=== PATIENT | female | born 1990 | race Caucasian/White ===

== ENCOUNTER 2022-04-18 12:07 | Emergency (ER) | payer BC, SELFPAY ==
[2022-04-18 12:11] VITALS: BP 166/75; PULSE 76; RESP 18; O2SAT 98
--- NOTE | 2022-04-18 12:15 | DI.US_ITS ---
Exam(s) US OB 1ST TRIMESTER EXAM: US OB 1ST TRIMESTER CLINICAL HISTORY: abdominal pain, 7 weeks , no prior iup. COMPARISON: No exams were available for comparison TECHNIQUE: Transabdominal Transvaginal first trimester obstetrical ultrasound performed. FINDINGS: Sonographic images demonstrate a single intrauterine gestation. A yolk sac and pole are seen. Sonographically assessed gestational age based upon crown-rump length of 1.1 cm cm is: 7 weeks 1 day Estimated date of delivery based upon LMP: 05 December 2022. heart rate motion is Dopplered at: 143 bpm. No free fluid identified. Both ovaries appear sonographically normal. Pelvic Measurments Uterus: 8.4 x 4.6 x 6.3 cm Rt Ovary: 3.5 x 1.8 x 2.8 cm Lt Ovary: 3.7 x 2.7 x 3.2 cm IMPRESSION: Single live intrauterine gestation measuring 7 weeks 1 day. No evidence of ectopic . DATA REPOSITORY:
[2022-04-18 14:07] LABS: Abs Immature Grans 0.03 10^3/uL (0.0-0.06); Absolute Basophil Count 0.09 10^3/uL (0.0-0.2); Absolute Eosinophil Count 0.25 10^3/uL (0.0-0.7); Absolute Lymphocyte Count 1.76 10^3/uL (1.2-3.4); Absolute Monocyte Count 0.96 10^3/uL (0.1-0.8); Absolute Neutrophil Count 6.19 10^3/uL (1.2-6.7); Eosinophils % 2.7; HCT 40.5 % (36.0-46.0); HGB 13.9 g/dL (11.2-15.7); Immature Grans % 0.3; MCH 30.7 pg (27.0-33.0); MCHC 34.3 % (32.0-36.0); MCV 89 fL (80-95); MPV 9.3 fL (8.0-11.0); Monocytes % 10.3; Neutrophils % 66.7; Platelet Count 342 10^3/uL (130-400); RBC 4.53 10^6/uL (3.93-5.22); RDW-SD 39.3 fL; WBC 9.28 10^3/uL (4.4-10.8)
[2022-04-18 14:31] LABS: HCG Qual (Serum) Positive
[2022-04-18 14:39] LABS: ALT 21 U/L (14-59); AST 12 U/L (15-37); Albumin 3.8 g/dL (3.4-5.0); Alkaline Phosphatase 64 U/L (46-116); Anion Gap 9.1 mmol/L (3-11); BUN 10 mg/dL (7-18); Bilirubin, Total 0.2 mg/dL (0.2-1.0); CO2 23.9 mmol/L (21.0-32.0); CREATININE 0.5 mg/dL (0.55-1.02); Calcium 8.6 mg/dL (8.5-10.1); Chloride 103 mmol/L (98-107); Glucose 95 mg/dL (74-106); Potassium 3.8 mmol/L (3.5-5.1); Sodium 136 mmol/L (136-145); Total Protein 7.8 g/dL (6.4-8.2)
[2022-04-18 14:45] LABS: Bilirubin Negative (Negative); Blood Negative (Negative); Clarity Clear (Clear); Glucose Negative (Negative); Ketones Negative (Negative); Leukocyte Esterase Negative (Negative); Nitrite Negative (Negative); Urobilinogen 0.2 EU/dL (Up TO 0.2)
[2022-04-18 15:07] VITALS: BP 122/67
--- NOTE | 2022-04-18 16:04 | ED.GENADUL_ITS ---
Discharge Plan Disposition Patient Disposition: HOME Condition: Stable Discharge Details Clinical Impression: Primary Care Provider: None,None ED Provider: Consuelo De La Vega Home Meds and New Rx's Prescriptions: Continued [id number] 1 mg Tablet 1 tab PO DAILY albuterol 90 mcg/actuation Aerosol 90 mcg INHALATION PRN PRN Discharge Instructions Instructions: (ED) Additional Instructions: Take Tylenol as needed for pain Follow-up to establish primary care physician and follow-up with your [employer] at your scheduled appointment Please return Should you have persistent or worsening pain, fever, vaginal bleeding, or with any new or worsening complaints Your labs and urinalysis are all within normal limits Stand Alone Forms: Work Release Discharge Data Discharge Date/Time-TO BE ENTERED AT DEPARTURE: 04/18/22 15:25 Medical Decision Making Ultrasound does not show evidence of acute abnormality Labs within normal limits Positive IUP Referred back to her provider for close outpatient reassessment Urinalysis does not show evidence of infection Return precautions discussed and patient expressed understanding Low suspicion for appendicitis clinically given lack of right lower quadrant/McBurney's point tenderness, no leukocytosis, afebrile Medical Records Medical records reviewed: Yes I reviewed the patient's medical records. Lab Data Lab results reviewed: Yes I reviewed the patient's lab results. HPI General Date/Time Provider Initiated Documentation: 04/18/22 12:18 . HPI Narrative: This 31-year-old female presents approximately 7 weeks from [facility] with right lower quadrant discomfort that started last evening. Denies any vaginal bleeding. Denies any chest pain or shortness of breath. Denies any dizziness or weakness. 1 para 0. Denies fever or chills. Sexually active and monogamous with her partner. Denies any flank pain or urinary symptoms. Denies risk for sexually transmitted disease. Denies any hematuria or dysuria. States the pain is actually improved today. Related Data Home Medications Medication Instructions Recorded Confirmed albuterol 90 mcg/actuation aerosol 90 mcg inhalation PRN PRN 04/18/22 04/18/22 inhaler [id number] 1 mg 1 tab PO DAILY 04/18/22 04/18/22 tablet Allergies Allergy/AdvReac Type Severity Reaction Status Date / Time No Known Allergies Allergy Unverified 04/18/22 12:14 General Stated Complaint: [employer] PATRICIA: 3 Review of Systems All systems reviewed & are unremarkable except as noted in HPI and below PFSH All Active Problems (Updated 04/18/22 @ 15:02 by YAKOV Riggs) (Acute) Social History Smoking/Tobacco Use Status: Never Smoking risk assessment performed?: Yes Substance use type: does not use Do you feel safe at home: Yes Do you feel safe in your relationship?: Yes Exam Const General: cooperative, comfortable and no acute distress Eyes Pupils: PERRL Resp Effort & Inspection: normal respiratory effort Auscultation: clear to auscultation bilaterally Cardio Rate: regular rate Rhythm: regular rhythm GI Other: no reproducible tenderness Skin General skin exam: no rashes or lesions noted Neuro General: patient alert and patient oriented x3 Extrem General: normal to inspection Course Vital Signs Vital signs: Vital Signs Pulse 76 04/18/22 12:11 Respiratory Rate 18 04/18/22 12:11 Blood Pressure 166/75 H 04/18/22 12:11 Pulse Oximetry 98 04/18/22 12:11 Pulse 76 04/18/22 12:11 Respiratory Rate 18 04/18/22 12:11 Respiratory Effort 04/18/22 12:15 Blood Pressure 122/67 04/18/22 15:07 Blood Pressure Position Sitting 04/18/22 12:11 Pulse Oximetry 98 04/18/22 12:11 Oxygen Delivery Method Room Air 04/18/22 12:11 Oxygen Flow Rate 0 04/18/22 12:11 Pain Level 0 04/18/22 15:07 Lab/Test Results Lab/Test Results: Laboratory Tests Range/Units 04/18/22 04/18/22 04/18/22 13:58 13:58 13:58 WBC (4.4-10.8) 10^3/uL 9.28 RBC (3.93-5.22) 10^6/uL 4.53 Hgb (11.2-15.7) g/dL 13.9 Hct (36.0-46.0) % 40.5 MCV (80-95) fL 89 MCH (27.0-33.0) pg 30.7 MCHC (32.0-36.0) % 34.3 RDW (11.7-14.6) % 12.0 Plt Count (130-400) 10^3/uL 342 MPV (8.0-11.0) fL 9.3 Immature Gran % 0.3 Neutrophils % 66.7 Lymphocytes % 19.0 Monocytes % 10.3 Eosinophils % 2.7 Basophils % 1.0 Nucleated RBC % (0.0-0.3) % 0.0 Absolute Neutrophils (1.2-6.7) 10^3/uL 6.19 Absolute Lymphocytes (1.2-3.4) 10^3/uL 1.76 Absolute Monocytes (0.1-0.8) 10^3/uL 0.96 H Absolute Eosinophils (0.0-0.7) 10^3/uL 0.25 Absolute Basophils (0.0-0.2) 10^3/uL 0.09 Sodium (136-145) mmol/L 136 Potassium (3.5-5.1) mmol/L 3.8 Chloride (98-107) mmol/L 103 Carbon Dioxide (21.0-32.0) mmol/L 23.9 Anion Gap (3-11) mmol/L 9.1 BUN (7-18) mg/dL 10 Creatinine (0.55-1.02) mg/dL 0.5 L Estimated GFR/1.73 m2 (mL/min/1.73m2) >= 60.00 Glucose (74-106) mg/dL 95 Calcium (8.5-10.1) mg/dL 8.6 Total Bilirubin (0.2-1.0) mg/dL 0.2 AST (15-37) U/L 12 L ALT (14-59) U/L 21 Alkaline Phosphatase (46-116) U/L 64 Total Protein (6.4-8.2) g/dL 7.8 Albumin (3.4-5.0) g/dL 3.8 Serum HCG, Qual Positive A Urine Color (Yellow) Urine Clarity (Clear) Urine pH (5-8) Ur Specific [place] (1.005-1.025) Urine Protein (Negative) mg/dL Urine Ketones (Negative) mg/dL Urine Blood (Negative) Urine Nitrite (Negative) Urine Bilirubin (Negative) Urine Urobilinogen (Up TO 0.2) EU/dL Ur Leukocyte Esterase (Negative) Urine Glucose (Negative) mg/dL Patient ABO/Rh Antibody Screen Range/Units 04/18/22 04/18/22 13:58 14:20 WBC (4.4-10.8) 10^3/uL RBC (3.93-5.22) 10^6/uL Hgb (11.2-15.7) g/dL Hct (36.0-46.0) % MCV (80-95) fL MCH (27.0-33.0) pg MCHC (32.0-36.0) % RDW (11.7-14.6) % Plt Count (130-400) 10^3/uL MPV (8.0-11.0) fL Immature Gran % Neutrophils % Lymphocytes % Monocytes % Eosinophils % Basophils % Nucleated RBC % (0.0-0.3) % Absolute Neutrophils (1.2-6.7) 10^3/uL Absolute Lymphocytes (1.2-3.4) 10^3/uL Absolute Monocytes (0.1-0.8) 10^3/uL Absolute Eosinophils (0.0-0.7) 10^3/uL Absolute Basophils (0.0-0.2) 10^3/uL Sodium (136-145) mmol/L Potassium (3.5-5.1) mmol/L Chloride (98-107) mmol/L Carbon Dioxide (21.0-32.0) mmol/L Anion Gap (3-11) mmol/L BUN (7-18) mg/dL Creatinine (0.55-1.02) mg/dL Estimated GFR/1.73 m2 (mL/min/1.73m2) Glucose (74-106) mg/dL Calcium (8.5-10.1) mg/dL Total Bilirubin (0.2-1.0) mg/dL AST (15-37) U/L ALT (14-59) U/L Alkaline Phosphatase (46-116) U/L Total Protein (6.4-8.2) g/dL Albumin (3.4-5.0) g/dL Serum HCG, Qual Urine Color (Yellow) Yellow Urine Clarity (Clear) Clear Urine pH (5-8) 7.0 Ur Specific [place] (1.005-1.025) 1.010 Urine Protein (Negative) mg/dL Negative Urine Ketones (Negative) mg/dL Negative Urine Blood (Negative) Negative Urine Nitrite (Negative) Negative Urine Bilirubin (Negative) Negative Urine Urobilinogen (Up TO 0.2) EU/dL 0.2 Ur Leukocyte Esterase (Negative) Negative Urine Glucose (Negative) mg/dL Negative Patient ABO/Rh A Positive Antibody Screen NEGATIVE
== END 2022-04-18 15:25 | disposition home or self-care (01) ==
PROVIDERS: Emergency Provider Physician Assistant
DX: Z34.01 Encounter for supervision of normal first pregnancy, first trimester (principal); Z3A.01 Less than 8 weeks gestation of pregnancy
CPT/HCPCS: 36415; 80053; 86850; 86900; 86901; 99284; 76801; 81003; 84703; 85025; 99282